=== PATIENT | female | born 1970 | race Caucasian/White ===

== ENCOUNTER 2016-09-12 15:42 | Outpatient (CLI) | payer MEDICAID | END 2016-09-12 15:43 | disposition home or self-care (01) | DX: M25.511 Pain in right shoulder (principal) ==

== ENCOUNTER 2017-05-23 14:14 | Emergency (ER) | payer MEDICAID ==
[2017-05-23 14:24] VITALS: BP 126/76
[2017-05-23] MEDS ORDERED: IBUPROFEN 400 MG TABLET PO STA (14:51)
[2017-05-23] MEDS ORDERED: AMOX/CLAV 875 MG/125 MG TABLET PO STA (14:51)
[2017-05-23] MEDS ORDERED: ACETAMINOPHEN 325 MG TABLET PO STA (14:51)
[2017-05-23] MEDS ORDERED: AMOX/CLAV 875 MG/125 MG TABLET PO ONE (15:04)
[2017-05-23] MEDS ORDERED: ACETAMINOPHEN 325 MG TABLET PO ONE (15:04)
[2017-05-23] MEDS ORDERED: IBUPROFEN 400 MG TABLET PO ONE (15:04)
--- NOTE | 2017-05-23 15:04 | ED Physician Documentation ---
History of Present Illness - Stated complaint Stated Complaint: SINUS PRESSURE - Chief complaint Chief Complaint: Heent - Additonal information Additional information: hx from pt 47 female recent cold sinus pressure and behind eyes and sig pain swelling erythema to bridge of nose no fever no cough Review of Systems Constitutional: denies: Fever Cardiac: denies: Chest pain / pressure Respiratory: denies: Dyspnea : reports: Hysterectomy Skin: reports: Rash Immunocompromised: denies: Immunocompromised PD PAST MEDICAL HISTORY - Past Medical History Past Medical History: Yes Psych: Anxiety - Past Surgical History Past Surgical History: Yes 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, Hysterectomy - Present Medications Home Medications: Ambulatory Orders Medication Instructions Recorded Confirmed Sertraline [Zoloft] 25 mg PO DAILY 04/05/15 05/23/17 Amox/Clav 875/125 [Augmentin] 1 each PO Q12H #20 tablet 05/23/17 Fluticasone [Flonase] 1 sprays LUIS BID PRN #1 bottle 05/23/17 Pseudoephedrine [Sudafed] 30 mg PO Q6H PRN #20 tablet 05/23/17 - Allergies Allergies/Adverse Reactions: Allergies Allergy/AdvReac Type Severity Reaction Status Date / Time caffeine Allergy Intermediate Hives Verified 05/23/17 14:24 - Social History Does the pt smoke?: Yes Smoking Status: Current every day smoker Does the pt drink ETOH?: No Does the pt have substance abuse?: No - Immunizations Immunizations are current?: No Immunizations: TDAP >10years/unknown PD ED PE NORMAL - Vitals Vital signs reviewed: Yes - HEENT HEENT: No: Ears normal (R TM dull and retracted, nasl mucosa swelling and dc, maxillary sinus TTP and mild erytehma and swelling, sig erythema and swelling and TTP across bridge of nose without any open wounds) - Neck Neck: Supple, no meningeal sign - Cardiac Cardiac: RRR - Respiratory Respiratory: No respiratory distress, Clear bilaterally Results - Vitals Vitals: Vital Signs - 24 hr 05/23/17 14:19 Temperature 36.6 C Heart Rate 96 Respiratory 18 Rate Blood Pressure 126/76 O2 Saturation 98 Oxygen O2 Source Room air PD MEDICAL DECISION MAKING - ED course ED course: sx of sinusiitis but also sig erythema to upper nose almost more c/w cellulitis given possible midface cellultiis will rx ab instead of just usual decongestant and patricia pot for sinus sx Departure - Departure Disposition: Home, Self Care Clinical Impression: Nose cellulitis Sinusitis Qualifiers: Sinusitis location: maxillary Chronicity: acute Recurrence: not specified as recurrent Qualified Code(s): J01.00 - Acute maxillary sinusitis, unspecified Condition: Good Instructions: ED Infec Skin Cellulitis, ED Headache Sinus Follow-Up: [facility] [Provider Group] Prescriptions: Amox/Clav 875/125 [Augmentin] 1 each PO Q12H #20 tablet Fluticasone [Flonase] 1 sprays LUIS BID PRN #1 bottle PRN Reason: congestion Pseudoephedrine [Sudafed] 30 mg PO Q6H PRN #20 tablet PRN Reason: congestion Comments: Midface infections can be very serious. Please follow up at [facility] for a recheck tomorrow or Sunday. If you cannot get a follow up appointment and are worse, please come back to the ER Forms: Activity restrictions
== END 2017-05-23 15:44 | disposition home or self-care (01) ==
LOC: ED 14:14
DX: J34.0 Abscess, furuncle and carbuncle of nose (principal); J01.00 Acute maxillary sinusitis, unspecified; F17.200 Nicotine dependence, unspecified, uncomplicated
CPT/HCPCS: 99283; A9270

== ENCOUNTER 2017-05-24 13:10 | Emergency (ER) | payer MEDICAID ==
--- NOTE | 2017-05-24 14:22 | ED Physician Documentation ---
PD HPI WOUND RECHECK - Stated complaint Stated Complaint: NOSE RECHECK/DR IBARRA - Chief complaint Chief Complaint: Wound - Histroy obtained from History obtained from: Patient - History of Present Illness Location: Other (Seen here yesterday with atraumatic cellulitis of the bridge of the nose and started on antibiotics, she has had 3 doses so far. She was returning to have a recheck as advised. She feels like she is not better but not worse either. 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, Hysterectomy - Present Medications Home Medications: Ambulatory Orders Medication Instructions Recorded Confirmed Sertraline [Zoloft] 25 mg PO DAILY 04/05/15 05/24/17 Amox/Clav 875/125 [Augmentin] 1 each PO Q12H #20 tablet 05/23/17 05/24/17 Fluticasone [Flonase] 1 sprays LUIS BID PRN #1 bottle 05/23/17 05/24/17 Pseudoephedrine [Sudafed] 30 mg PO Q6H PRN #20 tablet 05/23/17 05/24/17 - Allergies Allergies/Adverse Reactions: Allergies Allergy/AdvReac Type Severity Reaction Status Date / Time caffeine Allergy Intermediate Hives Verified 05/23/17 14:24 - Social History Does the pt smoke?: Yes Smoking Status: Current every day smoker Does the pt drink ETOH?: No Does the pt have substance abuse?: No - Immunizations Immunizations are current?: No Immunizations: TDAP >10years/unknown - POLST Patient has POLST: No PD ED PE NORMAL - Vitals Vital signs reviewed: Yes - General General: Alert and oriented X 3, No acute distress - HEENT HEENT: Other (She has mild cellulitis over the bridge of the nose with tenderness, no obvious palpable abscess. She has swollen nasal mucosa on the left, the left TM is retracted and slightly red. There is no periorbital cellulitis or problems with extraocular movements.) - Neck Neck: Supple, no meningeal sign, No bony TTP - Neuro Neuro: Alert and oriented X 3, Normal speech - Psych Psych: Normal mood, Normal affect Results - Vitals Vitals: Vital Signs - 24 hr 05/24/17 05/24/17 13:15 14:40 Temperature 37.4 C 36.7 C Heart Rate 95 86 Respiratory 18 18 Rate Blood Pressure 108/71 106/70 O2 Saturation 99 97 Oxygen O2 Source Room air PD MEDICAL DECISION MAKING - ED course ED course: At this point she is stable, neither better nor worse. We discussed doing facial imaging, but after discussion she prefers to wait a little longer to see if the antibiotics have more of an effect over the next day or 2. Departure - Departure Disposition: 01 Home, Self Care Clinical Impression: Nose cellulitis Condition: Good Record reviewed to determine appropriate education?: Yes Instructions: Cellulitis Dc Comments: Continue the antibiotics. Return if worsening, or in 36 hours or so if not improving. Discharge Date/Time: 05/24/17 14:40
[2017-05-24 14:42] VITALS: BP 106/70
--- NOTE | 2017-05-24 19:52 | ED Physician Documentation ---
ED Addendum - Addendum Addendum: 05/24/17 19:51 return visit - chart accessed for follow up and educational purposes
== END 2017-05-24 14:40 | disposition home or self-care (01) ==
LOC: ED 13:10
DX: J34.0 Abscess, furuncle and carbuncle of nose (principal); F17.200 Nicotine dependence, unspecified, uncomplicated
CPT/HCPCS: 99282; 99283

== ENCOUNTER 2017-05-26 12:49 | Emergency (ER) | payer MEDICAID ==
[2017-05-26 12:55] VITALS: BP 121/80
[2017-05-26] MEDS ORDERED: cefTRIAXone 1 GM VIAL IM STA (13:56)
[2017-05-26] MEDS ORDERED: SULFAMETH/TRIMETH DS 800/160 MG TABLET PO STA (13:56)
[2017-05-26] MEDS ORDERED: DEXAMETHASONE 10 MG/ML VIAL PO STA (13:56)
--- NOTE | 2017-05-26 13:59 | ED Physician Documentation ---
History of Present Illness - Stated complaint Stated Complaint: FACE PX - Chief complaint Chief Complaint: Heent - History obtained from History obtained from: Patient - History of Present Illness Timing: How many days ago (4) Pain level max: 3 Pain level now: 3 Improved by: Antibiotics Worsened by: Movement, palpation, especially the bridge of the nose - Additonal information Additional information: Patient is a 47-year-old female who presents to the emergency department what appears to be a mild facial cellulitis. This is been ongoing for the past 4 days. States that she was worse yesterday, but is better today. No fevers. No pain with extraocular movements. Did have a recent URI with nasal congestion. 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, Hysterectomy - Present Medications Home Medications: Ambulatory Orders Medication Instructions Recorded Confirmed Amox/Clav 875/125 [Augmentin] 1 each PO ONCE 05/26/17 05/26/17 Oxymetazoline HCl [Afrin] 2 spray NS BID PRN #1 spray 05/26/17 Sertraline [Zoloft] 50 mg PO DAILY 05/26/17 05/26/17 Sulfamethox/Trimeth 800/160 1 each PO BID #14 tablet 05/26/17 [Bactrim Ds 800/160] - Allergies Allergies/Adverse Reactions: Allergies Allergy/AdvReac Type Severity Reaction Status Date / Time caffeine Allergy Intermediate Hives Verified 05/26/17 12:55 - Social History Does the pt smoke?: Yes Smoking Status: Current every day smoker Does the pt drink ETOH?: No Does the pt have substance abuse?: No - Immunizations Immunizations are current?: No Immunizations: TDAP >10years/unknown - POLST Patient has POLST: No PD ED PE NORMAL - Vitals Vital signs reviewed: Yes - General General: Alert and oriented X 3, No acute distress, Well developed/nourished - HEENT HEENT: PERRL, EOMI (No pain with extraocular movements), Ears normal, Moist mucous membranes, Pharynx benign, Other (Inflamed nasal turbinates bilaterally. Does have mild cellulitis over the bridge of the nose as well as over the zygoma bilaterally. No periorbital cellulitis) - Neck Neck: Supple, no meningeal sign - Cardiac Cardiac: RRR, Strong equal pulses - Respiratory Respiratory: No respiratory distress, Clear bilaterally - Abdomen Abdomen: Soft, Non tender, Non distended - Derm Derm: Warm and dry - Neuro Neuro: Alert and oriented X 3 - Psych Psych: Normal mood, Normal affect Results - Vitals Vitals: Vital Signs - 24 hr 05/26/17 12:52 Temperature 36.1 C L Heart Rate 94 Respiratory 18 Rate Blood Pressure 121/80 O2 Saturation 97 Oxygen O2 Source Room air PD MEDICAL DECISION MAKING - ED course Complexity details: reviewed old records, considered differential, d/w patient ED course: Patient is a 47-year-old female presents to the emergency department with continued facial cellulitis. Reviewed photos on her phone, appears that this is improving and she feels like she is improving today as well. States yesterday was worse. Given a dose of Rocephin IM and will start on decongestants. Also will add Bactrim to cover for MRSA. No evidence of orbital cellulitis. No evidence of mucomycosis. Patient counseled regarding signs and symptoms for which I believe and urgent re-evaluation would be necessary. Patient with good understanding of and agreement to plan and is comfortable going home at this time This document was made in part using voice recognition software. While efforts are made to proofread this document, sound alike and grammatical errors may occur. Departure - Departure Disposition: 01 Home, Self Care Clinical Impression: Nose cellulitis Condition: Good Instructions: ED Cellulitis Facial Follow-Up: return,here in 2 days for recheck [Other] Prescriptions: Oxymetazoline HCl [Afrin] 2 spray NS BID PRN #1 spray PRN Reason: nasal congestion Sulfamethox/Trimeth 800/160 [Bactrim Ds 800/160] 1 each PO BID #14 tablet Comments: Continue your other antibiotics at home. This should improve over the next 48 hours. Return sooner than 2 days if you are worsening prior to that time.
[2017-05-26] MEDS ORDERED: DEXAMETHASONE 10 MG/ML VIAL ONE (14:08)
[2017-05-26] MEDS ORDERED: SULFAMETH/TRIMETH DS 800/160 MG TABLET PO ONE (14:08)
[2017-05-26] MEDS ORDERED: cefTRIAXone 1 GM VIAL ONE (14:09)
[2017-05-26] MEDS ORDERED: LIDOCAINE 1% 2 ML VIAL ONE (14:09)
== END 2017-05-26 14:31 | disposition home or self-care (01) ==
LOC: ED 12:49
DX: J34.0 Abscess, furuncle and carbuncle of nose (principal); F17.200 Nicotine dependence, unspecified, uncomplicated
CPT/HCPCS: 96372; 99283; A9270

== ENCOUNTER 2018-02-22 08:00 | Outpatient (CLI) | payer MEDICAID ==
[2018-02-22 12:30] LABS: BASOPHILS % (AUTO) 0.6 %; EOSINOPHILS # (AUTO) 0.3 10^3/uL (0.0-0.7); EOSINOPHILS % (AUTO) 3.8 %; HGB - HEMOGLOBIN 15.3 g/dL (12.0-16.0); LYMPHOCYTES # (AUTO) 1.4 10^3/uL (1.5-3.5); LYMPHOCYTES % (AUTO) 20.9 %; MEAN CORPUSCULAR HEMOGLOBIN 31.7 pg (27.0-31.0); MEAN CORPUSCULAR HGB CONC 34.8 g/dL (32.0-36.0); MEAN CORPUSCULAR VOLUME 91.2 fL (81.0-99.0); MEAN PLATELET VOLUME 8.8 fL (7.9-10.8); MONOCYTES # (AUTO) 0.6 10^3/uL (0.0-1.0); MONOCYTES % (AUTO) 8.7 %; NEUTROPHILS # (AUTO) 4.3 10^3/uL (1.5-6.6); PLT - PLATELET COUNT 173 10^3/uL (130-450); RED BLOOD COUNT 4.84 10^6/uL (4.20-5.40); RED CELL DISTRIBUTION WIDTH 13.6 % (12.0-15.0); WHITE BLOOD COUNT 6.5 x10^3/uL (4.8-10.8)
[2018-02-22 13:08] LABS: ALBUMIN 4.1 g/dL (3.2-5.5); ALBUMIN/GLOBULIN RATIO 1.4 (1.0-2.2); ALKALINE PHOSPHATASE 64 IU/L (42-121); ALT ALANINE AMINOTRANSFERASE 13 IU/L (10-60); AST ASPARTATE AMINOTRANSFERASE 16 IU/L (10-42); BILIRUBIN,TOTAL 0.5 mg/dL (0.2-1.0); BUN - BLOOD UREA NITROGEN 12 mg/dL (6-20); CALCIUM 9.4 mg/dL (8.5-10.3); CARBON DIOXIDE - CO2 27 mmol/L (21-32); CHLORIDE 107 mmol/L (101-111); CHOL/HDL RATIO 3.5 (<4.4); CHOLESTEROL 123 mg/dL; CREATININE 0.8 mg/dL (0.4-1.0); GFR - MDRD 76 (>89); GLUCOSE 81 mg/dL (70-100); HDL CHOLESTEROL 35 mg/dL; LDL CHOLESTEROL,CALCULATED 52 mg/dL; LDL/HDL RATIO 1.5 (<4.4); SODIUM 141 mmol/L (135-145); TOTAL PROTEIN 7.1 g/dL (6.7-8.2); VLDL CHOLESTEROL 36 mg/dL
== END 2018-02-22 08:01 | disposition home or self-care (01) ==
LOC: LAB.N 08:00
PROVIDERS: ATTEND Nurse Practitioner Gerontology
DX: Z13.9 Encounter for screening, unspecified (principal)
CPT/HCPCS: 36415; 80053; 80061; 83721; 84443; 85025

== ENCOUNTER 2018-12-31 08:00 | Outpatient (CLI) | payer MEDICAID ==
[2018-12-31 18:56] LABS: BASOPHILS % (AUTO) 0.5 %; EOSINOPHILS # (AUTO) 0.3 10^3/uL (0.0-0.7); EOSINOPHILS % (AUTO) 3.4 %; HGB - HEMOGLOBIN 14.7 g/dL (12.0-16.0); LYMPHOCYTES # (AUTO) 1.9 10^3/uL (1.5-3.5); LYMPHOCYTES % (AUTO) 24.8 %; MEAN CORPUSCULAR HEMOGLOBIN 31.4 pg (27.0-31.0); MEAN CORPUSCULAR VOLUME 95.1 fL (81.0-99.0); MEAN PLATELET VOLUME 10.8 fL (7.9-10.8); MONOCYTES # (AUTO) 0.5 10^3/uL (0.0-1.0); MONOCYTES % (AUTO) 6.8 %; PLT - PLATELET COUNT 200 10^3/uL (130-450); RED BLOOD COUNT 4.68 10^6/uL (4.20-5.40); RED CELL DISTRIBUTION WIDTH 13.7 % (12.0-15.0); WHITE BLOOD COUNT 7.7 x10^3/uL (4.8-10.8)
[2018-12-31 19:44] LABS: ALBUMIN 4.1 g/dL (3.2-5.5); ALBUMIN/GLOBULIN RATIO 1.4 (1.0-2.2); ALKALINE PHOSPHATASE 70 IU/L (42-121); ALT ALANINE AMINOTRANSFERASE 13 IU/L (10-60); AST ASPARTATE AMINOTRANSFERASE 15 IU/L (10-42); BILIRUBIN,TOTAL 0.4 mg/dL (0.2-1.0); BUN - BLOOD UREA NITROGEN 15 mg/dL (6-20); CALCIUM 8.8 mg/dL (8.5-10.3); CARBON DIOXIDE - CO2 22 mmol/L (21-32); CHLORIDE 107 mmol/L (101-111); CHOL/HDL RATIO 4.3 (<4.4); CHOLESTEROL 130 mg/dL; CREATININE 0.9 mg/dL (0.4-1.0); GFR - MDRD 67 (>89); GLUCOSE 128 mg/dL (70-100); HDL CHOLESTEROL 30 mg/dL; LDL CHOLESTEROL,CALCULATED 44 mg/dL; LDL/HDL RATIO 1.5 (<4.4); SODIUM 139 mmol/L (135-145); TOTAL PROTEIN 7.1 g/dL (6.7-8.2); VLDL CHOLESTEROL 56 mg/dL
== END 2018-12-31 23:59 | disposition home or self-care (01) ==
LOC: LAB.N 08:00
PROVIDERS: ATTEND Nurse Practitioner Gerontology
DX: Z13.9 Encounter for screening, unspecified (principal)
CPT/HCPCS: 36415; 80053; 80061; 83721; 85025

== ENCOUNTER 2019-02-13 08:00 | Outpatient (CLI) | payer MEDICAID ==
[2019-02-13 18:50] LABS: HB2 TOTAL 16.2 g/dL; HEMOGLOBIN A1C 0.54 g/dL; HEMOGLOBIN A1C % 5.2 % (4.6-6.2)
== END 2019-02-13 23:59 | disposition home or self-care (01) ==
LOC: LAB.N 08:00
PROVIDERS: ATTEND Nurse Practitioner Gerontology
DX: R73.9 Hyperglycemia, unspecified (principal)
CPT/HCPCS: 36415; 83036

== ENCOUNTER 2020-09-30 16:47 | Outpatient (CLI) | payer MEDICAID ==
--- NOTE | 2020-09-30 18:45 | XRAY Report ---
PROCEDURE: Shoulder 2 View LT INDICATIONS: ROTATOR CUFF SYNDROME TECHNIQUE: 2 views of the shoulder were acquired. COMPARISON: None. FINDINGS: Bones: No fractures or dislocations. Mild to moderate osteoarthritic changes in left acromioclavicul ar joint are seen. No suspicious bony lesions. Visualized ribs appear intact. Soft tissues: No suspicious soft tissue calcifications. IMPRESSION: [id number] left acromioclavicular joint osteoarthritis. Reviewed by: Sunday Whyte MD on 09/30/2020 5:44 PM AKHELENA Approved by: Sunday Whyte MD on 09/30/2020 5:44 PM AKDT Station ID: [id number]
== END 2020-09-30 16:48 | disposition home or self-care (01) ==
LOC: DI 16:47
PROVIDERS: ATTEND Family Medicine
DX: M19.012 Primary osteoarthritis, left shoulder (principal)

== ENCOUNTER 2021-03-17 17:14 | Outpatient (CLI) | payer MEDICAID ==
--- NOTE | 2021-03-18 08:51 | XRAY Report ---
PROCEDURE: Shoulder 2 View LT INDICATIONS: LEFT ROTATOR CUFF SYNDROME TECHNIQUE: 2 views of the shoulder were acquired. COMPARISON: 09/30/2020. FINDINGS: Bones: No fractures or dislocations. Mild to moderate acromioclavicular joint changes are seen not s ignificantly changed from previous study. No suspicious bony lesions. Visualized ribs appear intact. Soft tissues: No suspicious soft tissue calcifications. IMPRESSION: Mild to moderate acromioclavicular joint osteoarthritis not significantly changed from p revious study. No fracture or dislocation. Reviewed by: Sunday Whyte MD on 03/18/2021 8:49 AM PDT Approved by: Sunday Whyte MD on 03/18/2021 8:49 AM PDT Station ID: [id number]
== END 2021-03-17 17:15 | disposition home or self-care (01) ==
LOC: DI.N 17:14
PROVIDERS: ATTEND Family Medicine
DX: M19.012 Primary osteoarthritis, left shoulder (principal)

== ENCOUNTER 2023-03-17 22:56 | Outpatient (CLI) | payer SELFPAY | END 2023-03-17 23:59 | disposition EMS.NT | LOC: EMS 22:56 | DX: R51.9 Headache, unspecified (principal) ==